=== PATIENT | female | born 1965 | race Caucasian/White ===

== ENCOUNTER → 2020-09-15 | Outpatient (CLI) | payer BC | LOC: RAD 15:15 | DX: Z12.31 Encounter for screening mammogram for malignant neoplasm of breast (principal); Z12.4 Encounter for screening for malignant neoplasm of cervix; L57.0 Actinic keratosis; J30.9 Allergic rhinitis, unspecified; E87.6 Hypokalemia; F32.9 Major depressive disorder, single episode, unspecified; E55.9 Vitamin D deficiency, unspecified | CPT/HCPCS: 77063; 77067 ==

== ENCOUNTER → 2020-09-23 | Outpatient (CLI) | payer BC ==
--- NOTE | 2020-09-23 15:32 | Diagnostic Imaging Report ---
PROCEDURE: Pelvic comp/transvaginal sonogram. TECHNIQUE: Complete transabdominal and transvaginal pelvic ultrasound was performed. In addition, limited pelvic Doppler was performed. INDICATION: Postmenopausal with bleeding. Uterus is anteverted measuring 5.9 x 4.2 x 4.7 cm. The endometrium is thickened for postmenopausal status measuring 10 mm. There is some heterogeneity to the endometrium. Mild vascularity is present in the endometrium as well. No myometrial mass is identified. Right ovary measures 2.3 x 1.7 x 1.3 cm. The left ovary measures 6.5 x 4.3 x 7.0 cm. There is a cystic mass involving the left ovary measuring approximately 6.7 x 5.1 x 6.3 cm. No free fluid is seen. There does appear to be blood flow present to the ovaries. IMPRESSION: 1. Thickened endometrium with some mild vascularity. While hyperplasia is a possibility, neoplasia cannot be entirely excluded and tissue sampling is likely indicated. 2. Nearly 7 cm cystic mass in the left ovary, indeterminate. A cystic ovarian neoplasm cannot be entirely excluded. Dictated by: Dictated on workstation # [id number]
== END ==
LOC: RAD 15:15
PROVIDERS: ATTEND Physician Assistant
DX: Z12.4 Encounter for screening for malignant neoplasm of cervix (principal); Z12.31 Encounter for screening mammogram for malignant neoplasm of breast; N83.202 Unspecified ovarian cyst, left side; L57.0 Actinic keratosis; J30.9 Allergic rhinitis, unspecified; E87.6 Hypokalemia; F32.9 Major depressive disorder, single episode, unspecified; E55.9 Vitamin D deficiency, unspecified; R93.89 Abnormal findings on diagnostic imaging of other specified body structures
CPT/HCPCS: 76830; 76856

== ENCOUNTER 2020-11-23 05:45 | Outpatient (CLI) | payer BC ==
[~2020-11-23] VITALS: Ht 172.7 cm; Wt 57.2 kg
[2020-11-23] MEDS ORDERED: SERT-414 PO (12:34)
[2020-11-23] MEDS ORDERED: ERGO1250 PO (12:34)
[2020-11-23] MEDS ORDERED: LORA10TA76 PO (12:34)
== END 2020-11-23 12:40 | disposition home or self-care (01) ==
LOC: PREOP 05:45
PROVIDERS: ATTEND Obstetrics & Gynecology
DX: Z01.818 Encounter for other preprocedural examination (principal)

== ENCOUNTER 2020-11-26 06:02 | Day surgery (SDC) | payer BC ==
[2020-11-26] VITALS (11 sets, daily range): BP systolic 93–153; BP diastolic 55–90
[~2020-11-26] VITALS: Ht 172.7 cm; Wt 57.2 kg
[~2020-11-26 06:02] MED LIST: ERGO1250 PO; LORA10TA76 PO; SERT-414 PO
[2020-11-26] MEDS ORDERED: ceFAZolin INJECTION 1,000 MG in WATER (STERILE) FOR INJECTION 10 ML IV ONE (06:15)
[2020-11-26] MEDS: LACTATED RINGERS 1,000 ML IV PRN ×2 (06:30→10:46)
[2020-11-26 06:41] LABS: BASOPHILS % (AUTO) 1 % (0-10); EOSINOPHILS # (AUTO) 0.2 10^3/uL (0.0-0.3); EOSINOPHILS % (AUTO) 4 % (0-10); HEMATOCRIT 39 % (35-52); HEMOGLOBIN 12.8 g/dL (11.5-16.0); LYMPHOCYTES # (AUTO) 1.6 10^3/uL (1.0-4.0); LYMPHOCYTES % (AUTO) 31 % (12-44); MEAN CORPUSCULAR HEMOGLOBIN 32 pg (25-34); MEAN CORPUSCULAR HGB CONC 33 g/dL (32-36); MEAN CORPUSCULAR VOLUME 96 fL (80-99); MEAN PLATELET VOLUME 9.7 fL (9.0-12.2); MONOCYTES # (AUTO) 0.6 10^3/uL (0.0-1.0); MONOCYTES % (AUTO) 12 % (0-12); NEUTROPHILS # (AUTO) 2.6 10^3/uL (1.8-7.8); NEUTROPHILS % (AUTO) 51 % (42-75); PLATELET COUNT 205 10^3/uL (130-400)
[2020-11-26] MEDS ORDERED: MIDAZOLAM 2 MG/2 ML (VERSED) VIAL ONE (07:01)
[2020-11-26] MEDS ORDERED: fentaNYL INJ 100 MCG/2 ML AMP ONE ×3 (07:01→11:45)
[2020-11-26] MEDS ORDERED: proPOfol 200 MG/20 ML (DIPRIVAN) VIAL IV ONE (07:01)
[2020-11-26] MEDS ORDERED: LIDOCAINE PF 2% 5 ML (XYLOCAINE) VIAL ONE (07:01)
[2020-11-26] MEDS ORDERED: ONDANSETRON 4 MG/2 ML (SDV) Z0FRAN ONE (07:01)
[2020-11-26] MEDS ORDERED: ROCURONIUM 10 MG/ML 5 ML SYRINGE IV ONE (07:01)
[2020-11-26] MEDS ORDERED: LIDOCAINE/EPI 1%-1:100,000 (XYLOCAINE) 20ML ONE (07:17)
[2020-11-26] MEDS ORDERED: IBUP-1780 PO (07:37)
[2020-11-26] MEDS ORDERED: DOCU-143 PO (07:37)
[2020-11-26] MEDS ORDERED: OXYC1TAB87 PO (07:37)
[2020-11-26] MEDS ORDERED: ESTR1TAB27 PO (07:37)
--- NOTE | 2020-11-26 07:39 | Progress Note-Pre Operative ---
Pre-Operative Progress Note H&P Reviewed The H&P was reviewed, patient examined and no changes noted. Date Seen by Provider: Nov 26, 2020 Time Seen by Provider: 07:39 Date H&P Reviewed: Nov 26, 2020 Time H&P Reviewed: 07:39 Pre-Operative Diagnosis: Dysfunctional uterine bleeding/intrauterine mass/pelvic mass MARGI VELASQUEZ MD Nov 26, 2020 07:39
--- NOTE | 2020-11-26 07:39 | Discharge Inst-Surgical ---
Discharge Inst-Surgical Depart Medication/Instructions New, Converted or Re-Newed RX: Transmitted to Pharmacy Consults/Follow Up Patient Instructions: As directed Orders & Referrals Follow Up Appt: Return to clinic on Sunday, November 29, 2020 at 9:30 AM for staple removal Call to make follow up appt. for patient in 4 weeks. Activity: Rest for 24 hours, than as tolerated. Wound Care: May remove Band-Aid tomorrow. Replace as desired. Keep incisions clean and dry. Wash daily with soap and water. Diet: As tolerated. may shower or tub bathe as desired. No driving for 24 hours, no alcoholic beverages for 24 hours, and nothing per vagina (no tampons, douching, or intercourse) for 8 weeks. Patient to return to the clinic as soon as possible for: Temperature greater than 101F, Severe Pain, Foul discharge from incision or vagina, Excessive Bleeding (more than a period). Activity Activity as Tolerated: No Diet Discharge Diet: No Restrictions MARGI VELASQUEZ MD Nov 26, 2020 07:39
--- NOTE | 2020-11-26 07:40 | Progress Note-Post Operative ---
Post-Operative Progess Note Surgeon (s)/Press Service Reader (s) Surgeon MARGI VELASQUEZ MD Press Service Reader: Breann Pre-Operative Diagnosis Dysfunctional uterine bleeding/intrauterine mass/pelvic mass Post-Operative Diagnosis SameWith abnormal appearing appendix with pelvic adhesions and with pathology pending Procedure & Operative Findings Date of Procedure 11/26/20 Procedure Performed/Findings Total laparoscopic hysterectomy with bilateral salpingo-oophorectomy, Extensive adhesiolysis and laparoscopic appendectomy Anesthesia Type GETA Estimated Blood Loss Estimated blood loss (mL): Minimal Specimens/Packing Specimens Removed Uterus fallopian tubes and ovaryAnd the appendix MARGI VELASQUEZ MD Nov 26, 2020 07:40
[2020-11-26] MEDS ORDERED: ESTROGENS CONJ INJECTION 25 MG in WATER (STERILE) FOR INJECTION 5 ML IV ONE (07:45)
[2020-11-26] MEDS ORDERED: ONDANSETRON 4 MG/2 ML (SDV) Z0FRAN IVP PRN ×2 (07:45)
[2020-11-26] MEDS ORDERED: KETOROLAC 30 MG/ML VIAL IVP SCH (07:45)
[2020-11-26] MEDS ORDERED: D5 LR IV SOLUTION 1,000 ML IV SCH (07:45)
[2020-11-26] MEDS ORDERED: KETOROLAC 30 MG/ML VIAL ONE (08:44)
[2020-11-26] MEDS ORDERED: GLYCOPYRROLATE 0.2 MG/ML (ROBINUL) 2 ML VIAL ONE (08:44)
[2020-11-26] MEDS ORDERED: NEOSTIGMINE 3 MG/3 ML VIAL ONE (08:44)
[2020-11-26] MEDS ORDERED: SEVOFLURANE (ULTANE) 15 ML INHAL SOLN ONE (08:48)
[2020-11-26] MEDS ORDERED: ESTRADIOL 1 MG TAB (ESTRACE) PO SCH (09:00)
[2020-11-26] MEDS ORDERED: morphine INJ 10 MG/ML 1ML (SYR OR VIAL) IVP ONE (09:15)
[2020-11-26] MEDS ORDERED: MEPERIDINE (DEMEROL) INJ 50 MG/ML IVP ONE (09:15)
[2020-11-26] MEDS ORDERED: PROMETHAZINE INJ 25 MG/ML (PHENERGAN) AMP IVP ONE (09:15)
[2020-11-26] MEDS: ONDANSETRON 4 MG/2 ML (SDV) Z0FRAN IVP PRN ×2 (09:48→10:11)
[2020-11-26] MEDS: fentaNYL INJ 100 MCG/2 ML AMP IVP PRN ×2 (10:20→11:51)
--- NOTE | 2020-11-26 11:30 | Anesthesia-General Post-Op ---
General Patient Condition Mental Status/LOC: Same as Preop Cardiovascular: Satisfactory Nausea/Vomiting: Absent Respiratory: Satisfactory Pain: Controlled Complications: Absent Post Op Complications Complications None Follow Up Care/Instructions Patient Instructions None needed. Anesthesia/Patient Condition Patient Condition Patient is doing well, no complaints, stable vital signs, no apparent adverse anesthesia problems. No complications reported per nursing. WILLIAM FINE CRNA Nov 26, 2020 11:30
[2020-11-26] MEDS: KETOROLAC 30 MG/ML VIAL IVP SCH ×2 (15:05→20:59)
[2020-11-26] MEDS: oxyCODONE/APAP 5/325MG (PERCOCET 5) TABLET PO PRN ×2 (15:06→17:41)
--- NOTE | 2020-11-26 15:34 | OPERATIVE REPORT ---
DATE OF SERVICE: 11/26/2020 PREOPERATIVE DIAGNOSES: Pelvic mass, dysfunctional uterine bleeding, menorrhagia. POSTOPERATIVE DIAGNOSES: Pelvic mass, dysfunctional uterine bleeding, menorrhagia with likely large left hydrosalpinx and extensive pelvic adhesions and endometriosis and appendicitis. OPERATIVE PROCEDURES: Total laparoscopic hysterectomy with bilateral salpingo-oophorectomy involving extensive adhesiolysis followed by a laparoscopic appendectomy. OPERATIVE DESCRIPTION: With the patient in the supine position under satisfactory general anesthesia, she was repositioned in a dorsal lithotomy position in the [facility] and prepped and draped in the usual fashion for abdominal and vaginal surgery. A weighted speculum was placed in the posterior fornix of the vagina, cervix exposed and grasped, and tented with a single tooth tenaculum. The uterus was sounded to 8 cm with uterine sound. The cervix was then serially dilated with Keagan dilators to accommodate a Evette II manipulator, which was placed using a 6 mm x 8 cm uterine probe and a 35 mm colpotomy ring. Sutures of #1 Vicryl were placed at 3 and 9 o'clock positions of the cervix to affix the uterus to the manipulator. The patient was brought in a low dorsal lithotomy position after placing a Alonzo catheter in the urinary bladder. A 12 mm incision was made 5 cm superior to the umbilicus. Veress needle was placed through that incision, correct placement confirmed with water drop test and the abdomen insufflated with 2.4 liters of carbon dioxide. Veress needle was removed. A 10 mm laparoscopic port was placed and then the abdominal wall was transilluminated and 8 mm ports were placed through incisions of those sizes 8 cm lateral to the umbilicus. The patient was placed in a Trendelenburg allowing the bowel to spill up out of the pelvis. The da Violeta column was advanced on the patient and docked and operative instrument was placed in right and left lateral ports and I retired to the da Violeta console. At the console, using the vessel sealer on the right and bipolar fenestrated grasper on the left, the pelvis was first examined. There was a large bluish discolored left hydrosalpinx. There were extensive adhesions of the posterior surface of the uterus to the cul-de-sac to the ovary and to the anterior surface of the rectosigmoid. The laparoscope was rotated. The appendix was adherent to the pelvic brim on the right and appeared distended and injected consistent with appendicitis. There were obvious endometriosis implants in the pelvis, particularly on the left ovarian fossae. The uterus was small and otherwise normal. Decision was made to go ahead with appendectomy. The appendiceal adhesions were freed using the vessel sealer and then the mesoappendix was divided to the base of appendix also using the vessel sealer. The appendix was left at this time with plan to come back and remove it later now. Attention was turned to the pelvis. The right fallopian tube and ovary were grasped and elevated. The adhesions on the posterior surface of the uterus and to the pelvic sidewalls and to the bowel wall were all completely lysed freeing the structures. The large hydrosalpinx filled the left side of the pelvis, but was mobile and could be examined completely around demonstrating the ureters peristalsing on both sides. The right fallopian tube and ovary were now grasped and elevated. The IP ligament was clamped, cauterized and divided with the vessel sealer that was continued stepwise across the mesovarium, across the round ligament, across the broad ligament down onto the cardinal ligament. Same procedure was performed on the left, eventually allowing for removal of both tubes and ovaries with the uterus. The anterior lower uterine segment peritoneum was now exposed and using a monopolar shear on the right arm, the anterior lower uterine segment peritoneum was divided and dissected down off of the cervix and anterior vaginal wall, clearing the bladder from the area. Colpotomy incision was started at 12 o'clock position through the vagina down to the colpotomy ring. That incision was continued circumferentially until the entire colpotomy ring was exposed. This allowed the uterus to be removed from the vagina with the tubes and ovaries still attached. Vaginal cuff was closed with a single suture of V-Loc barbed suture starting from the right angle and continuing across in the usual manner to the left angle. Good reapproximation and good hemostasis was achieved. The bladder peritoneum was reapproximated with the last two stitches of that suture. Hemostasis was complete. Both ureters were seemed to peristalse and at this point, the da Violeta laparoscopic portion of the procedure was halted. The da Violeta column was removed from the patient. Using a scope in the right lateral port, Endo-COLT in the umbilical port and a grasper in the left lateral port, the appendix was grasped and elevated. Endo-COTL was placed across the base of appendix and fired, severing the appendix from its attachments and the appendix was then placed in an Endobag and brought out through the umbilical port. The pelvis was irrigated as was the stump of the appendix. There was no bleeding. There was no remaining pathology. The stump of the appendix was then treated with several drops of Betadine solution and the procedure was complete. The operative instruments were removed under direct vision as were the ports. The abdomen was evacuated of insufflating gas in the process of removing the ports. The skin incisions were stapled. The fascia at the supraumbilical incision was closed with a vkoeth-ax-siykt suture of 2-0 Vicryl. Speculum was replaced in the vagina. The vaginal cuff was examined. It was completely reapproximated and completely hemostatic. Sponge and needle counts were correct. Blood loss was minimal. The patient was now uneventfully awakened from her general anesthesia and transferred to the recovery room in stable condition with Alonzo catheter remaining to dependent drainage, draining clear yellow urine. Job ID: [id number] DocumentID: [id number] Dictated Date: 11/26/2020 08:55:13 Sales Operations Director Date: 11/26/2020 15:33:45 Dictated By: MARGI VELASQUEZ MD
[2020-11-27] MEDS: oxyCODONE/APAP 5/325MG (PERCOCET 5) TABLET PO PRN (01:53)
[2020-11-27 01:59] VITALS: BP 123/75
[2020-11-27] MEDS: KETOROLAC 30 MG/ML VIAL IVP SCH (01:59)
[2020-11-27 08:35] VITALS: BP 145/73
[2020-11-27 08:40] VITALS: BP 145/73
[2020-11-27] MEDS ORDERED: ESTRADIOL 1 MG TAB (ESTRACE) PO SCH (09:00)
[2020-11-27] MEDS ORDERED: IBUPROFEN 800 MG (MOTRIN) TAB PO SCH (09:00)
[2020-11-27] MEDS ORDERED: DOCUSATE SODIUM 100 MG (COLACE) CAP PO SCH (09:00)
== END 2020-11-27 08:45 | disposition home or self-care (01) ==
LOC: SDC 06:02 → WS 09:46 → SDC 11-27 08:45
PROVIDERS: ATTEND Obstetrics & Gynecology
DX: N84.0 Polyp of corpus uteri (principal); D27.1 Benign neoplasm of left ovary; R87.612 Low grade squamous intraepithelial lesion on cytologic smear of cervix (LGSIL); K37 Unspecified appendicitis; N73.6 Female pelvic peritoneal adhesions (postinfective); L81.4 Other melanin hyperpigmentation; N94.89 Other specified conditions associated with female genital organs and menstrual cycle; N70.11 Chronic salpingitis; D64.9 Anemia, unspecified; F41.9 Anxiety disorder, unspecified; F32.9 Major depressive disorder, single episode, unspecified; Z87.891 Personal history of nicotine dependence; Z79.899 Other long term (current) drug therapy
CPT/HCPCS: 36415; 85025; 87081; 94664

== ENCOUNTER → 2021-01-20 | Outpatient (CLI) | payer BC ==
[~2021-01-20] MED LIST changes: +DOCU-143 PO; +ESTR1TAB27 PO; +IBUP-1780 PO; +OXYC1TAB87 PO
--- NOTE | 2021-01-20 13:24 | Diagnostic Imaging Report ---
PROCEDURE: CT head and CT cervical spine without contrast. TECHNIQUE: Multiple contiguous axial images were obtained through the brain and cervical spine without the use of intravenous contrast. Sagittal and coronal reformations through the cervical spine were then performed. Auto Exposure Controls were utilized during the CT exam to meet ALARA standards for radiation dose reduction. INDICATION: Fall striking the head, head pain. COMPARISON: No priors. FINDINGS: There is no intracranial hemorrhage. There is no hydrocephalus. No cerebral edema, mass, or mass effect. There is no evidence for an elevation of the intracranial pressures. The basilar cisterns are patent. There is no sulcal effacement. No mass or mass effect. No calvarial fracture deformity. There is a tiny air-fluid level with some mild membrane thickening associated with the right maxillary sinus which shows some chronic sclerosis and deformity, this is believed chronic and inflammatory. IMPRESSION: No hemorrhage, fracture, or acute finding. Some mild right maxillary sinusitis. Dictated by: Dictated on workstation # [id number]
[2021-01-20 13:35] LABS: BASOPHILS % (AUTO) 0 % (0-10); EOSINOPHILS # (AUTO) 0.1 10^3/uL (0.0-0.3); EOSINOPHILS % (AUTO) 1 % (0-10); HEMATOCRIT 37 % (35-52); HEMOGLOBIN 12.4 g/dL (11.5-16.0); LYMPHOCYTES # (AUTO) 1.5 10^3/uL (1.0-4.0); LYMPHOCYTES % (AUTO) 16 % (12-44); MEAN CORPUSCULAR HEMOGLOBIN 32 pg (25-34); MEAN CORPUSCULAR HGB CONC 34 g/dL (32-36); MEAN CORPUSCULAR VOLUME 94 fL (80-99); MEAN PLATELET VOLUME 9.4 fL (9.0-12.2); MONOCYTES # (AUTO) 0.8 10^3/uL (0.0-1.0); MONOCYTES % (AUTO) 8 % (0-12); NEUTROPHILS % (AUTO) 74 % (42-75); PLATELET COUNT 228 10^3/uL (130-400); WHITE BLOOD COUNT 9.5 10^3/uL (4.3-11.0)
--- NOTE | 2021-01-20 13:40 | Diagnostic Imaging Report ---
EXAMINATION: CHEST (PA AND LATERAL) CLINICAL INDICATION: 55-year-old female, syncope and collapse. COMPARISON: None. FINDINGS: Heart size and mediastinal contours are unremarkable. There is no identified pneumothorax. There is no pleural effusion. There is no identified focal airspace consolidation. IMPRESSION: 1. No identified acute cardiopulmonary abnormality. Dictated by: Dictated on workstation # [id number]
--- NOTE | 2021-01-20 13:41 | Diagnostic Imaging Report ---
EXAMINATION: Radiographs of the sacrum and coccyx, 3 views. COMPARISON: None. HISTORY: 55-year-old female, syncope and collapse. Sacrum and coccygeal pain. FINDINGS: There is question of cortical offset and a fracture of the first coccygeal segment on the lateral view. There is no radiographically apparent sacral fracture. There are some limitations for evaluation of the sacrum and coccyx on frontal view imaging given the overlying fecal material. The sacral iliac joints appear normally aligned. IMPRESSION: 1. Potential very mildly displaced fracture of the first coccygeal segment. This may be more optimally evaluated with dedicated CT or MRI. 2. Unremarkable appearance of the bilateral sacroiliac joints. Dictated by: Dictated on workstation # [id number]
[2021-01-20 13:47] LABS: ALBUMIN 4.2 GM/DL (3.2-4.5); CHLORIDE 98 MMOL/L (98-107); POTASSIUM 3.1 MMOL/L (3.6-5.0); SODIUM 143 MMOL/L (135-145)
[2021-01-20 13:48] LABS: CALCIUM 10.9 MG/DL (8.5-10.1)
[2021-01-20 13:50] LABS: GLUCOSE 93 MG/DL (70-105); TOTAL PROTEIN 6.9 GM/DL (6.4-8.2)
[2021-01-20 13:51] LABS: BILIRUBIN,TOTAL 0.4 MG/DL (0.1-1.0); CARBON DIOXIDE 35 MMOL/L (21-32)
[2021-01-20 13:53] LABS: ALKALINE PHOSPHATASE 49 U/L (40-136); CREATININE SERUM 0.71 MG/DL (0.60-1.30); GFR ESTIMATED 85
[2021-01-20 13:54] LABS: BUN/CREATININE RATIO 25
[2021-01-20 13:56] LABS: ALANINE AMINOTRANSFERASE 19 U/L (0-55)
[2021-01-20 14:03] LABS: CREATINE KINASE MB 1.4 NG/ML (<6.6)
== END ==
LOC: RAD 12:45
PROVIDERS: ATTEND Physician Assistant
DX: S32.2XXA Fracture of coccyx, initial encounter for closed fracture (principal); S09.8XXA Other specified injuries of head, initial encounter; J32.0 Chronic maxillary sinusitis; W19.XXXA Unspecified fall, initial encounter
CPT/HCPCS: 36415; 70450; 71046; 72125; 72220; 80053; 82553; 83874; 84484; 85025